=== PATIENT | female | born 1985 | race Two or more races ===

== ENCOUNTER 2016-06-01 16:32 | Outpatient (CLI) | payer MEDICAID | END 2016-06-01 23:59 | DX: Z36 Encounter for antenatal screening of mother (principal) ==

== ENCOUNTER 2016-06-05 08:45 | Outpatient (CLI) | payer MEDICAID | END 2016-06-05 08:46 | disposition home or self-care (01) | DX: O34.211 Maternal care for low transverse scar from previous cesarean delivery (principal); Z36 Encounter for antenatal screening of mother ==

== ENCOUNTER 2016-06-19 12:26 | Outpatient (CLI) | payer MEDICAID | END 2016-06-19 12:27 | disposition home or self-care (01) | DX: Z36 Encounter for antenatal screening of mother (principal) ==

== ENCOUNTER 2016-07-05 10:00 | Outpatient (CLI) | payer MEDICAID | END 2016-07-05 10:01 | disposition home or self-care (01) | DX: Z36 Encounter for antenatal screening of mother (principal) ==

== ENCOUNTER 2016-09-21 08:00 | Outpatient (CLI) | payer MEDICAID | END 2016-09-21 23:59 | disposition home or self-care (01) | LOC: LAB.R 08:00 | PROVIDERS: ATTEND Obstetrics & Gynecology | DX: Z36 Encounter for antenatal screening of mother (principal) | CPT/HCPCS: 87081 ==

== ENCOUNTER 2016-10-21 04:18 | Inpatient (IN) | payer MEDICAID ==
[2016-10-21] MEDS ORDERED: ONDANSETRON 4 MG/2 ML VIAL IVP PRN (06:25)
[2016-10-21] MEDS ORDERED: SODIUM CHLORIDE FLUSH 0.9% 10 ML SYRINGE IVP PRN ×2 (06:25→06:36)
[2016-10-21 06:54] LABS: BASOPHILS % (AUTO) 0.5 %; EOSINOPHILS # (AUTO) 0.1 10^3/uL (0.0-0.7); EOSINOPHILS % (AUTO) 1.5 %; HCT - HEMATOCRIT 38.6 % (37.0-47.0); HGB - HEMOGLOBIN 13.1 g/dL (12.0-16.0); LYMPHOCYTES % (AUTO) 13.1 %; MEAN CORPUSCULAR HEMOGLOBIN 29.7 pg (27.0-31.0); MEAN CORPUSCULAR VOLUME 87.3 fL (81.0-99.0); MEAN PLATELET VOLUME 9.9 fL (7.9-10.8); MONOCYTES # (AUTO) 0.4 10^3/uL (0.0-1.0); MONOCYTES % (AUTO) 5.7 %; NEUTROPHILS # (AUTO) 5.9 10^3/uL (1.5-6.6); NEUTROPHILS % (AUTO) 79.2 %; NUCLEATED RED BLOOD CELLS AUTO 0.1 /100WBC; RED BLOOD COUNT 4.42 10^6/uL (4.20-5.40); RED CELL DISTRIBUTION WIDTH 14.8 % (12.0-15.0); UNCORRECTED WHITE BLOOD COUNT 7.4 x10^3/uL; WHITE BLOOD COUNT 7.4 x10^3/uL (4.8-10.8)
[2016-10-21] MEDS ORDERED: ceFAZolin 1 GM in SODIUM CHLORIDE 0.9% MINIBAG 100 ML IV SCH (07:00)
[2016-10-21] MEDS ORDERED: LACTATED RINGERS 1,000 ML IV SCH (07:00)
[2016-10-21] MEDS: LACTATED RINGERS 1,000 ML IV SCH ×2 (07:51→16:10)
[2016-10-21] MEDS ORDERED: PENICILLIN G POTASSIUM 5,000,000 UNIT in SODIUM CHLORIDE 0.9% MINIBAG 100 ML IV ONE (08:30)
[2016-10-21] MEDS ORDERED: CITRIC ACID/SODIUM CITRATE 15 ML UDC PO ONE (08:45)
[2016-10-21] MEDS ORDERED: LACTATED RINGERS 1,000 ML IV ONE ×3 (08:50→10:00)
[2016-10-21] MEDS ORDERED: MORPHINE PF 5 MG/10 ML AMP EP ONE (09:00)
[2016-10-21] MEDS ORDERED: OXYTOCIN 10 UNIT/ML VIAL IV ONE (09:00)
[2016-10-21] MEDS ORDERED: ACETAMINOPHEN 1,000 MG/100 ML VIAL IV ONE (09:00)
[2016-10-21] MEDS ORDERED: ONDANSETRON 4 MG/2 ML VIAL IVP ONE (09:00)
[2016-10-21] MEDS ORDERED: KETOROLAC 30 MG/ML VIAL IVP ONE (09:00)
[2016-10-21] MEDS ORDERED: MAGNESIUM HYDROXIDE 2,400 MG/30 ML UDC PO PRN (10:29)
[2016-10-21] MEDS ORDERED: diphenhydrAMINE 25 MG CAPSULE PO PRN (10:29)
--- NOTE | 2016-10-21 10:55 | DELIVERY NOTE ---
Delivery Note - Instructions [place]: -Left hand click circles element as positive or present. -Right hand click slashes element as negative or not present. - Labor Labor: positive: Spontaneous - Presentation Presentation: positive: Vertex, Unable to assess - Nuchal Cord Nuchal Cord: positive: None - Amniotic Fluid Description Amniotic Fluid Description: positive: Clear - Vacuum Use Type of Vacuum Cup: positive: Cup: Mushroom Type, Cup: Soft Vacuum Extraction: positive: Unsuccessful Number of pop-offs: 2 - Episiotomy Type Episiotomy Type: positive: None - Laceration Laceration: positive: None - Delivery Outcome Delivery Outcome: positive: Livebirth - [place]: positive: Bulb syringe sex: positive: Female : 9 : 9 - Cord Cord: positive: 3 vessels - Placenta Placenta: positive: Manual removal - Estimated Blood Loss Estimated Blood Loss (in cc): 800 - Post Delivery Events Post Delivery Events: positive: No post delivery events - Delivery Comments (Free Text/Narrative) Delivery Comments (Free Text/Narrative): 31 yo with a 39w4d IUP presented to L&D with complaints of vaginal bleeding when she toilet. 1/2 of blood noted. Was scheduled for 10/24/2016 repeat CD and BS. On examination, the patient was compa every 5-6 minutes. Though no change in cervical exam (/high), blood on RN examination glove. FHT's reactive and category 1 with baseline in 130-140's. No decels. Recommend patient for delivery. The patient underwent an unremarkable repeat CD and bilateral salpingectomy. EBL 800 mL. Placenta delivered manually. Uterus closed in 2 layers. Bilateral salpingectomy performed and tubes sent to pathology. Prevena wound vac used. No complications. Apgars 9/9 with wewight 9 lbs, 7.1 oz or 4285 gm. Baby girl, "Regina." Ken at delivery.
--- NOTE | 2016-10-21 11:22 | OPERATIVE REPORT ---
Operative Report - General Admit Date: 10/21/16 - Other Other Information/Narrative: Date of Operation: 10/21/2016 Surgeon: Michaela Aguirre DO FACFABI Consultant Technology: EARLE Perez Environmental Management Specialist: Henrry Licea CRNA Anesthesia: Spinal Pre-op Dx: 1. 31 yo with a 39w4d IUP 2. Early active labor 3. Prior CD x 1 4. Desired permanent sterilization Post-op Dx: 1. 31 yo with a 39w4d IUP 2. Early active labor 3. Prior CD x 1 4. Desired permanent sterilization Procedure: 1. Repeat delivery 2. Bilateral salpingectomy Findings: Viable female fetus, "Hunter" with Apgars 9/9. Vertex presentation, anterior placenta. Weight 9 lbs, 7.1 oz or 4285 gm. Normal uterus, ovaries and fallopian tubes. Specimens: 1. Cord blood to lab 2. Placenta to medical waste 3. Bilateral fallopian tubes to pathology Drains: 1. Dozier catheter to gravity 2. Prevena wound vacuum EBL: 800 mL Complications: None Dictation #: [id number]
[2016-10-21] MEDS ORDERED: OXYTOCIN/LACTATED RINGERS 250 ML IV ONE ×2 (12:31→13:19)
[2016-10-21] MEDS: SIMETHICONE CHEW 80 MG TABLET PO SCH ×2 (13:36→18:05)
[2016-10-21] MEDS: CELECOXIB 100 MG CAPSULE PO SCH ×2 (13:36→22:57)
[2016-10-21] MEDS ORDERED: SODIUM CHLORIDE FLUSH 0.9% 10 ML SYRINGE IVP SCH (14:00)
[2016-10-21] MEDS: oxyCODONE 5 MG TABLET PO PRN ×2 (16:10→21:27)
[2016-10-21] MEDS: SODIUM CHLORIDE FLUSH 0.9% 10 ML SYRINGE IVP SCH ×2 (16:10→18:49)
[2016-10-21] MEDS: ACETAMINOPHEN 500 MG TABLET PO SCH ×2 (16:19→18:05)
[2016-10-21] MEDS: DOCUSATE SODIUM 100 MG CAPSULE PO SCH (22:56)
--- NOTE | 2016-10-22 00:24 | PREOP HISTORY & PHYSICAL ---
DATE OF ADMISSION/SURGERY: 10/24/2016 IDENTIFICATION: This is a 31-year-old, G3, P1-0-1-1 with a 39-5/7-week intrauterine . EDC is 10/24/2016 by 11-week ultrasound. HISTORY OF PRESENT ILLNESS: This is a patient of [facility] who presented earlier th is morning with complaints of vaginal bleeding. Patient says that when she went to empty her bladder , she noticed about 1/2 a cup of blood in the toilet. Also after she wiped, there was some blood. Ginna connor is scheduled for a repeat delivery as well as bilateral salpingectomy on 10/24/2016. On examination, the patient is compa every 5-6 minutes. The nonstress test is reactive and cat egory 1. Baseline is in the 130s to 140s. RN examination showed that though there was no cervical c hange with cervix at 1 cm dilation, thick, and high, there was blood on the examination glove. Rosey cardenas of early active labor, I think it is in the patient's best interest that we proceed to delivery. Currently patient is doing well; denies any nausea, vomiting, fevers, chills, or diarrhea. She state s that the baby has moving well, and she denies any loss of fluid. PAST MEDICAL HISTORY: Remote history of depression. PAST SURGICAL HISTORY 1. delivery x1. 2. One therapeutic in 02/2006. PAST GYNECOLOGICAL HISTORY: She denies any abnormal Pap smear or sexually transmitted diseases. LMP 12/28/2015. FAMILY HISTORY: She denies any female carcinoma. REVIEW OF SYSTEMS: Negative unless otherwise stated. PHYSICAL EXAMINATION VITAL SIGNS: Temperature is 97.9, heart rate 89, blood pressure 117/63, respiratory rate 17, O2 sat 98%. GENERAL: Patient is well-developed, well-nourished, extremely pleasant and intelligent Chinese fema le in no apparent distress. She is alert and oriented x3. HEENT: within normal limits. CARDIOVASCULAR: Regular rate. No murmurs or rubs. PULMONARY: Lungs are clear to auscultation bilaterally. ABDOMEN: Gravid, nontender. Estimated weight is 7-1/2 pounds. She does have a well-healed Pfan nenstiel skin incision. LABORATORY On 10/21/2016 laboratories reveal she has a white count of 7.4, hemoglobin 13.1, and hematocrit of 38 .6; platelets 172. Type and screen has been performed. lab panel show that she is O positive, antibody screen negative, RPR nonreactive, rubella im mune, hepatitis B surface antigen nonreactive, gonorrhea and chlamydia both negative, HIV is negative , GBS is positive. A 1-hour glucose tolerance test is 122. anatomic survey is consistent with dates and within normal limits. Placenta is anterior, 3-ves darek cord is noted. ASSESSMENT 1. A 31-year-old, G3, P1-0-1-1 with a 39-5/7-week intrauterine . 2. Early labor. 3. Desires permanent sterilization. 4. GBS positive. PLAN 1. CBC and type and screen performed. 2. Patient consented for repeat delivery, as well as bilateral salpingectomy. 3. Expect healthy mom and baby. 4. Penicillin for GBS prophylaxis. 08:9:00 JOB #: [id number] EXT JOB #:[id number]
[2016-10-22] MEDS: ACETAMINOPHEN 500 MG TABLET PO SCH ×3 (01:34→17:29)
[2016-10-22] MEDS: oxyCODONE 5 MG TABLET PO PRN ×6 (01:34→21:08)
[2016-10-22] MEDS: SIMETHICONE CHEW 80 MG TABLET PO SCH ×3 (06:33→17:29)
[2016-10-22] MEDS: SODIUM CHLORIDE FLUSH 0.9% 10 ML SYRINGE IVP SCH ×2 (06:33→16:41)
--- NOTE | 2016-10-22 08:23 | PROVIDER PROGRESS NOTE ---
Subjective - Prog Note Date Prog Note Date: 10/22/16 Prog Note Time: 08:19 - Subjective Pt reports feeling: Improved Subjective: Patient sitting in the rocking chair, breast feeding the baby. Dozier just removed. More pain when getting out of bed. Mom at bedside. Got a small amount of sleep. Objective - Vital Signs/Intake & Output Vital Signs: Vital Signs x48h Temp Pulse Resp BP Pulse Ox 10/22/16 04:24 98.7 F 99 18 109/59 L 98 Intake & Output: Intake & Output 10/19/16 10/20/16 10/21/16 10/22/16 23:59 23:59 23:59 23:59 Intake Total 2558 960 Output Total 850 900 Balance 1708 60 - Objective General Appearance: positive: No acute distress Eyes Bilateral: positive: Normal inspection Abdomen: positive: Non-tender (Wound vac working well) Neurologic/Psychiatric: positive: Oriented x3 - Lab Results Fish Bones: 10/21/16 06:45 Assessment/Plan - Problem List (1) Status post repeat low transverse section Impression: 31 yo S/p repeat CD and BS 10/21/2016 Normal recovery Viral URI Aggressive pain control with routine Celebrex, acetaminophen. PRN oxycodone. Robitussin PRN. Routine care. Remove saline lock. Anticipate discharge to home tomorrow.
[2016-10-22] MEDS ORDERED: PSEUDOEPHEDRINE 30 MG TABLET PO PRN (08:29)
[2016-10-22] MEDS: DOCUSATE SODIUM 100 MG CAPSULE PO SCH ×2 (09:48→21:08)
[2016-10-22] MEDS: CELECOXIB 100 MG CAPSULE PO SCH ×2 (09:48→21:08)
[2016-10-22] MEDS: guaiFENesin/CODEINE 5 ML UDC PO PRN (09:49)
--- NOTE | 2016-10-22 09:57 | OPERATIVE REPORT ---
DATE OF SURGERY: 10/21/2016 00:00:00 SURGEON: Michaela Aguirre D.O. MEDICAL TECHNICIANS: EARLE Obando PROCESS DESIGN CHEMICAL ENGINEER: Henrry Licea CRNA ANESTHESIA: Spinal. PREOPERATIVE DIAGNOSES: 1. A 31-year-old 0-1-1 with a 39 and 4/7th week intrauterine . 2. Early and active labor. 3. Prior delivery x1. 4. Desired permanent sterilization. POSTOPERATIVE DIAGNOSES: 1. A 31-year-old 0-1-1 with a 39 and 4/7th week intrauterine . 2. Early and active labor. 3. Prior delivery x1. 4. Permanent sterilization. NAME OF PROCEDURE: 1. Repeat delivery. 2. Bilateral salpingectomy. FINDINGS: 1. A viable female fetus named Josiane with Apgars of 9 and 9 at 1 and 5 minutes respectively. Vertex presentation, anterior placenta. weight 9 pounds, 7.1 ounces or 4285 grams. Normal uterus, ovaries and fallopian tubes. SPECIMENS: 1. Cord blood to lab. 2. Placenta to medical waste. 3. Bilateral fallopian tubes to pathology. DRAINS: 1. Dozier catheter to gravity. 2. Prevena wound Vac. ESTIMATED BLOOD LOSS: 800 mL. COMPLICATIONS: None. BRIEF HISTORY: Georgina is a patient of [facility] who called earlier this morning with complaints of vaginal bleeding. Georgina presented to the hospital and was found to be compa every 5 or 6 minutes. Though there was no change in cervical examination, there continued to be a small amount of vaginal bleeding. The fetus was reassuring with a reactive category 1 stress test and baseline in the 130s to 140s. There were no decelerations. Georgina was scheduled for a repeat delivery on 10/24/2016. I recommended to Georgina that we proceed to a repeat delivery at this point in time since I was concerned about uterine rupture. After discussion with Georgina regarding the risks, benefits, alternatives, indications and expectations of surgery, including the risk of infection, hemorrhage, and damage to surrounding organs. The risks may include an inadvertent laceration, cauterization or ligation of the adjacent ureters, bladder and intestines. Furthermore with sterilization, Georgina may no longer be able to have children naturally, the only option would be to do an in vitro fertilization which is somewhere in the neighborhood of $30,000. Georgina understands that there are different forms of contraception available to her including control pills , the IUD and the Nexplanon. After Georgina' questions were answered to her satisfaction, she verbalized the desire to proceed with surgery. Consent forms have been signed. OPERATION DETAIL: Georgina was identified and consented and taken to the operating room where IV access was already in place. Sequential compression devices were placed I her lower extremities and turned on. Georgina did get 1 gram of Ancef IV after she received a 5 million unit dose of IV penicillin for GBS prophylaxis. Georgina was then give a satisfactory spinal anesthestic as per Henrry Licea. A Dozier catheter was then placed into Georgina' bladder and then she was prepped and draped in the normal sterile fashion in the dorsal supine position with a leftward tilt. Timeout was performed which correctly identified the patient, site procedure and procedures themselves. Georgina' prior Pfannenstiel scar was first sharply removed. The incision was then carried to the underlying layer of fascia with electrocautery. Fascia was then nicked to the midline and extended laterally. The fascia was then blunted dissected off the rectus muscles. Dense adhesions were noted at the time of delivery. The rectus muscles were then sharply incised and the peritoneum entered bluntly. A bladder flap was then developed off the uterine vessel peritoneum in a sharp and blunt fashion. A low transverse incision was made in the lower uterine segment. There were some increased bleeding noted secondary to the placenta being anterior. Amniotomy revealed clear fluid. There was some difficulty in getting the baby out as the head was larger than anticipated. The rectus muscles, fascia and skin were then extended in order to make more room for the baby. A vacuum was also used to help deliver the baby with 3 pulls and 2 pop-offs. The head was delivered after enlarging the incision. With the help of fundal pressure, the head delivered through the hysterotomy. This was repeated and the baby was delivered in its entirety. Nuchal cord was not noted. The nose and mouth were then bulb syringed. The baby gave a lusty cry after delivery. The umbilical cord was then double clamped and cut and the infant was then handed off to Dr. Peewee Saldana, the on-call rail manager. The uterus was then internally massaged and the placenta then delivered manually. The uterus was then delivered out of the abdomen and cleared of all clots and debris. The hysterotomy was repaired with 2 sutures of 0-Vicryl in a running and locked fashion and a lambert stitch in order to imbricate the hysterotomy. Another suture of 0-Vicryl was used since a layer of myometrium was not incorporated in the initial uterine closure. Hemostasis was noted. Attention was then turned towards to the bilateral salpingectomy. The left fallopian tube was first identified and followed at its fimbriated end. Incisions were made in the mesosalpinx and the fallopian tube was then ligated and excised. Hemostasis was noted. In a similar fashion, the right fallopian tube was identified and then similarly excised. Hemostasis was also noted. The uterus was then replaced into the abdomen and the abdomen copiously irrigated. Hemostasis was noted. Close inspection was given towards the site of the bilateral salpingectomy. The peritoneum was then closed with a running stitch of 2-0 Vicryl and the same stitch was used to reapproximate the rectus muscles. 0-Vicryl was used to close the fascia in a running fashion. Subcuticular layer was then closed with single interrupted stitches of 0- Vicryl. The skin was then closed with 4-0 Monocryl in subcuticular fashion. Finally a Prevena wound Vac was placed on top of the incision and turned on. The patient tolerated the procedure well, was taken back to recovery room in stable and awake condition. She will be given routine care including routine NSAIDs and p.r.n. oxycodone. All sponge, lap and needle counts were correct x2 as per nursing report. JOB #: [id number] EXT JOB #:[id number] ANNY
[2016-10-22] MEDS: LACTATED RINGERS 1,000 ML IV SCH ×3 (11:26→16:41)
[2016-10-23] MEDS: ACETAMINOPHEN 500 MG TABLET PO SCH ×3 (01:06→19:31)
[2016-10-23] MEDS: oxyCODONE 5 MG TABLET PO PRN ×3 (01:06→11:29)
--- NOTE | 2016-10-23 09:03 | PROVIDER PROGRESS NOTE ---
Subjective - Prog Note Date Prog Note Date: 10/23/16 Prog Note Time: 09:01 - Subjective Pt reports feeling: Improved Subjective: Patient lying in bed, holding baby. Milk has not come in. Josiane still needs a little supplemental feeding. Notes oldest daughter Danica required bili-light therapy for 2 days. Josiane's bilirubin is intermediate. Patient desires to go home if possible. Ambulating and tolerating a regular diet. No fevers or chills. Denies nausea. Normal lochia. Pain controlled with po meds. Still has URI symptoms but better after Robitussin. Objective - Vital Signs/Intake & Output Reviewed Vital Signs: Yes Vital Signs: Vital Signs x48h Temp Pulse Resp BP BP Pulse Ox 10/23/16 07:30 96.4 F L 84 18 97/47 L 97 10/23/16 03:00 97.5 F L 88 18 102/56 L 97 Intake & Output: Intake & Output 10/20/16 10/21/16 10/22/16 10/23/16 23:59 23:59 23:59 23:59 Intake Total 2558 1210 Output Total 850 2100 Balance 1708 -890 - Objective General Appearance: positive: No acute distress Abdomen: positive: Non-tender (Wound vac intact and working well) - Lab Results Fish Bones: 10/21/16 06:45 Assessment/Plan - Problem List (1) Status post repeat low transverse section Impression: 31 yo S/p repeat CD and bilateral salpingectomy 10/21/2016. Normal recovery. Will discharge to home when baby is discharged. Return 10/25/2016 for removal of Prevena wound vac, then in 2 weeks for an incision check. Return for 6 week exam. Rx written for ibuprofen and vicodin. No lifting > baby's weight. No bathing, but showering OK. Call for worsening fevers, chills, abdominal pain or vaginal bleeding. Discharge Plan Disposition: Home, Self Care Condition: Good Diet: Regular Activity Restrictions: Activity as Tolerated (No lifting > the weight of the baby) Shower Restrictions: No Driving Restrictions: Yes (No driving after taking oxycodone) Weight Bearing: Full Weight No Smoking: If you smoke, Please STOP! Call for help.
--- NOTE | 2016-10-23 09:16 | PROVIDER PROGRESS NOTE ---
Subjective - Prog Note Date Prog Note Date: 10/23/16 Prog Note Time: 09:12 - Subjective Subjective: Dictation of discharge summary: [id number] Objective - Vital Signs/Intake & Output Vital Signs: Vital Signs x48h Temp Pulse Resp BP BP Pulse Ox 10/23/16 07:30 96.4 F L 84 18 97/47 L 97 10/23/16 03:00 97.5 F L 88 18 102/56 L 97 Intake & Output: Intake & Output 10/20/16 10/21/16 10/22/16 10/23/16 23:59 23:59 23:59 23:59 Intake Total 2558 1210 Output Total 850 2100 Balance 5095 -931 - Lab Results Fish Bones: 10/21/16 06:45
[2016-10-23] MEDS: CELECOXIB 100 MG CAPSULE PO SCH ×2 (10:40→21:36)
[2016-10-23] MEDS: SIMETHICONE CHEW 80 MG TABLET PO SCH ×3 (10:41→21:36)
[2016-10-23] MEDS: DOCUSATE SODIUM 100 MG CAPSULE PO SCH ×2 (10:41→21:35)
--- NOTE | 2016-10-23 11:22 | PROVIDER PROGRESS NOTE ---
Subjective - Prog Note Date Prog Note Date: 10/23/16 Prog Note Time: 11:20 - Subjective Subjective: Baby has been seen and will stay in the hospital. Will hold Georgina's discharge at this time. (Did do another discharge summary 10/22/2016, Dictation number: [id number].) Objective - Vital Signs/Intake & Output Vital Signs: Vital Signs x48h Temp Pulse Resp BP Pulse Ox 10/23/16 07:30 96.4 F L 84 18 97/47 L 97 Intake & Output: Intake & Output 10/20/16 10/21/16 10/22/16 10/23/16 23:59 23:59 23:59 23:59 Intake Total 2558 1210 Output Total 850 2100 Balance 1708 -890 - Lab Results Fish Bones: 10/21/16 06:45
[2016-10-23] MEDS: guaiFENesin/CODEINE 5 ML UDC PO PRN (11:31)
[2016-10-23] MEDS: SODIUM CHLORIDE FLUSH 0.9% 10 ML SYRINGE IVP SCH ×3 (18:35→21:36)
[2016-10-23] MEDS: LACTATED RINGERS 1,000 ML IV SCH ×3 (18:35→19:24)
[2016-10-24] MEDS: ACETAMINOPHEN 500 MG TABLET PO SCH ×3 (04:37→20:26)
--- NOTE | 2016-10-24 07:30 | PROVIDER PROGRESS NOTE ---
Subjective - Prog Note Date Prog Note Date: 10/24/16 Prog Note Time: 07:27 - Subjective Pt reports feeling: Improved Subjective: Patient in bed with baby. Baby's bili up today at 15.2. Likely to need phototherapy. Georgina doing better. Has declined oxycodone and doing find on just Tylenol and Motrin. Bleeding continues to improve. Objective - Vital Signs/Intake & Output Reviewed Vital Signs: Yes Vital Signs: Vital Signs x48h Temp Pulse Resp BP Pulse Ox 10/23/16 23:54 98.6 F 86 16 113/68 100 Intake & Output: Intake & Output 10/21/16 10/22/16 10/23/16 10/24/16 23:59 23:59 23:59 23:59 Intake Total 2558 1210 Output Total 850 2100 Balance 1708 -890 - Objective General Appearance: positive: No acute distress Abdomen: positive: Non-tender (Prevena wound vac intact and working well) Neurologic/Psychiatric: positive: Oriented x3 - Lab Results Fish Bones: 10/21/16 06:45 Assessment/Plan - Problem List (1) Status post repeat low transverse section Impression: 31 yo S/p repeat CD and bilateral salpingectomy 10/21/2016, POD #3. Normal recovery. Likely to keep the patient for another night as the baby may need phototherapy. Discharge to home as previously described when the baby has been discharged.
[2016-10-24] MEDS: SIMETHICONE CHEW 80 MG TABLET PO SCH ×3 (09:06→20:26)
[2016-10-24] MEDS: CELECOXIB 100 MG CAPSULE PO SCH ×2 (09:06→20:26)
[2016-10-24] MEDS: DOCUSATE SODIUM 100 MG CAPSULE PO SCH ×2 (09:06→20:26)
[2016-10-24] MEDS: oxyCODONE 5 MG TABLET PO PRN (16:10)
[2016-10-24] MEDS: guaiFENesin/CODEINE 5 ML UDC PO PRN (20:46)
[2016-10-25] MEDS: oxyCODONE 5 MG TABLET PO PRN (03:56)
[2016-10-25] MEDS: ACETAMINOPHEN 500 MG TABLET PO SCH ×2 (04:19→12:08)
[2016-10-25] MEDS: LACTATED RINGERS 1,000 ML IV SCH ×5 (08:14→08:20)
[2016-10-25] MEDS: SODIUM CHLORIDE FLUSH 0.9% 10 ML SYRINGE IVP SCH ×4 (08:15→08:21)
[2016-10-25] MEDS: SIMETHICONE CHEW 80 MG TABLET PO SCH ×3 (08:21→12:09)
--- NOTE | 2016-10-25 08:38 | PROVIDER PROGRESS NOTE ---
Subjective - Prog Note Date Prog Note Date: 10/25/16 Prog Note Time: 08:36 - Subjective Pt reports feeling: Improved Subjective: Patient sitting in bed, baby. Milk has come in. Baby was under bili-lights last PM. Bilirubin came down. Pain better. Wound vac starting to irritate her. Otherwise doing well. Got more sleep since the baby was in the bili-box. Objective - Vital Signs/Intake & Output Reviewed Vital Signs: Yes Vital Signs: Vital Signs x48h Temp Pulse Resp BP Pulse Ox 10/25/16 03:54 98.1 F 84 16 121/60 99 Intake & Output: Intake & Output 10/22/16 10/23/16 10/24/16 10/25/16 23:59 23:59 23:59 23:59 Intake Total 1210 Output Total 2100 Balance -890 - Objective General Appearance: positive: No acute distress Abdomen: positive: Non-tender (Prevena wound vac removed. Incision clean, dry and intact. Small blister on right side of dressing, 2-3 cm, healing nicely.) - Lab Results Fish Bones: 10/21/16 06:45 Assessment/Plan - Problem List (1) Status post repeat low transverse section Impression: 31 yo S/p repeat CD and BS 10/21/2016, POD #4. Normal recovery. Discharge to home.
[2016-10-25] MEDS: CELECOXIB 100 MG CAPSULE PO SCH (09:02)
[2016-10-25] MEDS: DOCUSATE SODIUM 100 MG CAPSULE PO SCH (09:03)
[2016-10-25 16:16] VITALS: BP 123/79
--- NOTE | 2016-10-25 17:03 | Labor Flowsheet ---
Labor Flowsheet Datetime Report Generated by CPN: 10/25/2016 17:02 Datetime: 10/25/2016 16:02 VITAL SIGNS NBP Sys/Callie/Mean (mmHg): 122 : 73 : 85 Pulse: 91 Datetime: 10/24/2016 20:31 Temperature (F): 97.7 Temperature (C): 36.5 Temperature (C): 36.5 Datetime: 10/22/2016 19:25 SpO2 (%): 98
--- NOTE | 2016-10-26 10:30 | DISCHARGE SUMMARY ---
DATE OF ADMISSION: 10/21/2016 DATE OF DISCHARGE: 10/25/2016 DIAGNOSES ON ADMISSION: 1. A 31-year-old G3, P1, 0-1-1 with a 39 and 5/7 weeks intrauterine . 2. Early labor. 3. GBS positive. 4. Desires permanent sterilization. DIAGNOSES ON DISCHARGE: 1. A 31-year-old G3, P2, 0-1-2, status post repeat caesarean delivery and bilateral salpingectomy on 10/21/2016. 2. Normal recovery. BRIEF HISTORY: The patient of [facility] who presented to [facility] on 10/21/2016 with complaints of vaginal bleeding. The patient got up to go to the restroom and n oticed about 1/2 a cup of blood in the toilet bowl. She also noted blood on the toilet tissue when sh e wiped. She came to the hospital and was found to be compa about every 6 minutes. She was sche duled for a 10/24/2016 repeat caesarean delivery as well as bilateral salpingectomy. Given that the p atient was in early active labor I recommended her to proceed with caesarean delivery. After discussi on of the risks, benefits, complications, indications, expectations of surgery she verbalizes to proc eed and consent was signed. The patient underwent a repeat caesarean delivery and bilateral salpingectomy. She delivered a viable female infant named Josiane with 's of 9 and 9. The baby weighed 9 pounds 7 ounces. Estimated bl ood loss was 800 mL and there were no complications. A Prevena wound VAC was placed on top of her inc ision at the conclusion of surgery. The emergency department course has been unremarkable. She has been ambulating and tolerating her t. She is urinating without difficulty and her pain is controlled with oral medications. Her lochia i s normal and the baby is latching well, though she does require some supplemental formula by bottle. The patient verbalizes her desire to go home. Assuming that the baby is to be discharged home I will send patient home today. The patient states that with her oldest daughter, Danica, she required phot otherapy for 2 days. In any event, patient will be discharged to home, she will be given prescription s for ibuprofen as well as oxycodone. We will discharge her to see me at [facility] on 10/25/2016 for removal of Prevena wound VAC. In addition she is to see me in 2 weeks for routi ne incision check and in 6 weeks for a routine visit. The patient knows to call should she have any worsening fevers, chills, abdominal pain or vaginal bleeding. Activity as tolerated and she is restricted to lifting no more than the baby's weight. When patient is ready to drive, she should not drive after taking oxycodone. She may shower, but not take baths. JOB #: [id number] EXT JOB #:[id number]
--- NOTE | 2016-10-26 10:30 | DISCHARGE SUMMARY ---
DATE OF ADMISSION: 10/21/2016 DATE OF DISCHARGE: 10/25/2016 DIAGNOSES ON ADMISSION: 1. A 31-year-old G3, P1, 0-1-1, with a 39 and 5/7 weeks intrauterine . 2. Early labor. 3. Desires permanent sterilization. DIAGNOSES ON DISCHARGE: 1. A 31-year-old G3, P2, 0-1-2, status post repeat caesarean delivery and bilateral salpingectomy on 10/21/2016. 2. Normal recovery. BRIEF HISTORY: This is a patient of [facility] with whom we have been seeing completely for her care, who has a history of a prior caesarean delivery with her first . Patient had also described her desire for permanent sterilization. She was scheduled for a repeat caesarean delivery on 10/24/2016. The patient, however, presented on 10/21/2016 with complaints of vaginal bleeding without pain. Examination showed she had a category 1 tracing that was reactive without decelerations. She was, however, noted to be compa every 5 to 6 minutes. The patient underwent a repeat caesarian delivery and bilateral salpingectomy on 10/21/2016, for early labor. Apgars are 9 and 9 at 1 and 5 minutes respectively. Baby, Regina, weighed 9 pounds 7.1 ounces, or 4285 grams. There were no complications and a Prevena wound VAC was used. The patient's postoperative course has been unremarkable and she is ambulating and tolerating a regular diet. The patient is urinating without difficulty and her pain is controlled with oral medication. The patient will be discharged to home on 10/25/2016. The patient will be given prescriptions for ibuprofen 800 mg, as well as Oxycodone 5 mg. She is to see me later this week for removal of her Prevena wound VAC and in 2 weeks for incision check. The patient is to call should she have any worsening fevers, chills, abdominal pain, or vaginal bleeding. JOB #: [id number] EXT JOB #:[id number] ANNY
== END 2016-10-25 16:40 | disposition home or self-care (01) | DRG 766 ==
LOC: WFO 04:18 → OB 04:18 → WFO 06:19 → OB 06:20
PROVIDERS: ADMIT Obstetrics & Gynecology; ATTEND Obstetrics & Gynecology
PROC: 0UB70ZZ Excision of Bilateral Fallopian Tubes, Open Approach (ICD-10-PCS; 2016-10-21)
PROC: 10D00Z1 Extraction of Products of Conception, Low, Open Approach (ICD-10-PCS; principal; 2016-10-21 08:00)
DX: O99.824 Streptococcus B carrier state complicating childbirth (principal); O34.211 Maternal care for low transverse scar from previous cesarean delivery; N85.8 Other specified noninflammatory disorders of uterus; O99.53 Diseases of the respiratory system complicating the puerperium; J06.9 Acute upper respiratory infection, unspecified; Z3A.39 39 weeks gestation of pregnancy; Z37.0 Single live birth; Z86.59 Personal history of other mental and behavioral disorders; Z30.2 Encounter for sterilization
CPT/HCPCS: 85025; 86850; 86900; 86901; 88302; 99213

== ENCOUNTER 2022-06-22 12:11 | Outpatient (CLI) | payer MEDICAID, OTHER ==
[2022-06-22 17:49] LABS: BASOPHILS % (AUTO) 0.3 %; EOSINOPHILS # (AUTO) 0.2 10^3/uL (0.0-0.7); EOSINOPHILS % (AUTO) 2.9 %; HCT - HEMATOCRIT 36.8 % (37.0-47.0); HGB - HEMOGLOBIN 11.6 g/dL (12.0-16.0); LYMPHOCYTES # (AUTO) 1.3 10^3/uL (1.5-3.5); LYMPHOCYTES % (AUTO) 21.8 %; MEAN CORPUSCULAR HEMOGLOBIN 23.1 pg (27.0-31.0); MEAN CORPUSCULAR HGB CONC 31.5 g/dL (32.0-36.0); MEAN CORPUSCULAR VOLUME 73.2 fL (81.0-99.0); MONOCYTES # (AUTO) 0.4 10^3/uL (0.0-1.0); MONOCYTES % (AUTO) 6.1 %; NEUTROPHILS # (AUTO) 4.2 10^3/uL (1.5-6.6); NEUTROPHILS % (AUTO) 68.6 %; PLT - PLATELET COUNT 255 10^3/uL (130-450); RED BLOOD COUNT 5.03 10^6/uL (4.20-5.40); RED CELL DISTRIBUTION WIDTH 16.7 % (12.0-15.0); WHITE BLOOD COUNT 6.1 x10^3/uL (4.8-10.8)
[2022-06-22 17:52] LABS: ALBUMIN 4.4 g/dL (3.2-5.5); ALBUMIN/GLOBULIN RATIO 1.3 (1.0-2.2); ALKALINE PHOSPHATASE 49 IU/L (42-121); ALT ALANINE AMINOTRANSFERASE 17 IU/L (10-60); AST ASPARTATE AMINOTRANSFERASE 17 IU/L (10-42); BILIRUBIN,TOTAL 0.5 mg/dL (0.2-1.0); BUN - BLOOD UREA NITROGEN 11 mg/dL (6-20); CALCIUM 9.3 mg/dL (8.5-10.3); CARBON DIOXIDE - CO2 24 mmol/L (21-32); CHLORIDE 106 mmol/L (101-111); CHOLESTEROL 230 mg/dL; CREATININE 0.6 mg/dL (0.4-1.0); GFR - MDRD 114 (>89); GLUCOSE 94 mg/dL (70-100); HDL CHOLESTEROL 57 mg/dL; LDL CHOLESTEROL,CALCULATED 152 mg/dL; LDL/HDL RATIO 2.7 (<4.4); POTASSIUM 3.7 mmol/L (3.5-5.0); SODIUM 138 mmol/L (135-145); TOTAL PROTEIN 7.8 g/dL (6.7-8.2); TRIGLYCERIDES 106 mg/dL; VLDL CHOLESTEROL 21 mg/dL
== END 2022-06-22 12:12 | disposition home or self-care (01) ==
LOC: LAB.N 12:11
PROVIDERS: ATTEND Nurse Practitioner
DX: Z13.220 Encounter for screening for lipoid disorders (principal); K64.9 Unspecified hemorrhoids; L29.0 Pruritus ani
CPT/HCPCS: 36415; 80053; 80061; 83721; 85025

== ENCOUNTER 2022-06-26 08:00 | Outpatient (CLI) | payer OTHER | END 2022-06-26 23:59 | disposition home or self-care (01) | LOC: LAB.N 08:00 | PROVIDERS: ATTEND Nurse Practitioner | DX: L29.0 Pruritus ani (principal) | CPT/HCPCS: 87177 ==